=== PATIENT | female | born 1960 | race African-American/Black ===

== ENCOUNTER 2018-07-14 18:05 | Emergency (ER) | payer SELFPAY ==
[~2018-07-14 18:05] MED LIST: Donnatal Elixir 16.2 MG/5 ML UDCUP ONE
[2018-07-14] MEDS ORDERED: Diphenoxylate HCl/Atropine Tablet ONE (18:16)
[2018-07-14] MEDS ORDERED: Hyoscyamine Sulfate SL 0.125 mg Tablet ONE (18:23)
[2018-07-14 18:56] LABS: Band 2 % (5-11); Eosinophils 2 % (0-10); Hemoglobin 13.8 g/dL (12.0-16.0); Lymphocytes 19 % (21-51); MDiff Complete? YES; Mean Corpuscular HGB CONC 33.6 g/dL (32.0-36.0); Mean Corpuscular Volume 89.6 fL (78.0-98.0); Mean Platelet Volume 9.3 fL (7.4-10.4); Monocytes 3 % (0-10); Neutrophil 74 % (42-75); PLT Morphology Comment Appears Adequate; Platelet Count 211 thou/uL (130-400); RBC Distribution Width 12.4 % (11.5-14.5); Red Blood Cell (RBC) Count 4.59 mill/uL (4.20-5.40); White Blood Cell (WBC) Count 11.1 thou/uL (4.8-10.8)
[2018-07-14 18:58] LABS: Anion Gap 15 mmol/L (10-20); BUN (Urea Nitrogen) 14 mg/dL (9.8-20.1); Calc. Creatinine Clearance 0 mL/min (70-130); Calcium 8.8 mg/dL (7.8-10.44); Carbon Dioxide 22 mmol/L (22-29); Chloride 108 mmol/L (98-107); Estimated GFR-MDRD 74; Glucose 113 mg/dL (70-105); Potassium 3.8 mmol/L (3.5-5.1); Sodium 141 mmol/L (136-145)
[2018-07-14] MEDS ORDERED: predniSONE 20 MG TAB ONE (19:38)
[2018-07-14] MEDS ORDERED: Mag-Al Plus 1200 MG/1200 MG/120 MG/30 ML UDCUP ONE (19:39)
[2018-07-14] MEDS ORDERED: Donnatal Elixir 16.2 MG/5 ML UDCUP ONE (19:39)
[2018-07-14] MEDS ORDERED: Lidocaine Viscous Sol 2% 15 ml UD Cup ONE (19:39)
== END 2018-07-14 19:50 | disposition home or self-care (01) ==
LOC: MADERS 18:05
DX: R19.7 Diarrhea, unspecified (principal)
CPT/HCPCS: 36415; 80048; 85025; 96360; J7506